=== PATIENT | female | born 1985 | race Caucasian/White ===

== ENCOUNTER 2019-08-13 17:22 | Emergency (ER) | payer MEDICAID ==
[2019-08-13] MEDS ORDERED: PROVENTIL 2.5 MG/3 ML NEB IH ONE ×2 (18:23→18:47)
[2019-08-13] MEDS ORDERED: solu-MEDROL 125 MG IV ONE (18:23)
[2019-08-13] MEDS ORDERED: Sodium Chloride 0.9% 1000 ML 1,000 ML IV STA (18:23)
[2019-08-13] MEDS ORDERED: Sodium Chloride 0.9% 1000 ML 1,000 ML ONE (18:44)
[2019-08-13] MEDS ORDERED: solu-MEDROL 125 MG ONE (18:44)
[2019-08-13 18:53] LABS: Absolute Neutrophil Ct (ANC) 4.28 (1.4-6.9); Hematocrit 31.5 % (35-47); Hemoglobin 10.1 gm/dl (12.0-16.0); Mean Corpuscular Hemoglobin 28.5 pg (26-32); Mean Corpuscular Hgb Concent. 32.1 g/dl (32-36); Mean Platelet Volume 11.3 fl (7.5-11.0); Platelet Count 277 K/mm3 (150-450); Red Blood Count 3.54 M/mm3 (4.1-5.4); Red Cell Distribution Width 13.3 % (11.5-14.0); White Blood Count 6.6 K/mm3 (4.0-10.5)
[2019-08-13 19:06] LABS: ALBUMIN 3.5 g/dL (3.5-5.0); ALKALINE PHOSPHATASE 84 U/L (38-126); ANION GAP 10.2 MEQ/L (5-15); BLOOD UREA NITROGEN 12 mg/dL (7-17); CHLORIDE 107 mmol/L (98-107); Calcium 8.3 mg/dL (8.4-10.2); Carbon Dioxide 25 mmol/L (22-30); Creatinine 1 0.67 mg/dL (0.52-1.04); Glucose 110 mg/dL (74-106); Potassium 3.5 mmol/L (3.5-5.1); SGOT/AST 32 U/L (14-36); SGPT/ALT 15 U/L (0-35); SODIUM 139 mmol/L (137-145); Total Protein 7.5 g/dL (6.3-8.2)
[2019-08-13 19:49] LABS: INFLUENZA A NEGATIVE (NEGATIVE); INFLUENZA B NEGATIVE (NEGATIVE); RESPIRATORY SYNCTIAL VIRUS NEGATIVE (Negative)
[2019-08-13] MEDS ORDERED: ROCEPHIN 1 Gm-D5w 50 ml Bag** 1 G/50 ML IVPB IV STA (20:06)
--- NOTE | 2019-08-13 20:08 | ERPHSYRPT ---
- History of Present Illness Time Seen by Provider: 08/13/19 18:30 Source: patient Exam Limitations: no limitations Patient Subjective Stated Complaint: PT states "I have been coughing for a few weeks now and I do not feel well." Triage Nursing Assessment: Pt presented congested with occasional cough. Pt ambulates with an upright steady gait, able to speak in clear full sentences pt in no apparent respiratory distress. Physician History: 33-year-old white female with cough x10 days she been coughing sneezing bringing up some mucousy sputum. She denies fever but says she has had some chills and sweats. Timing/Duration: day(s) (10) Cough Quality/Degree: productive cough, sputum Possible Cause: occasional episodes Modifying Factors: Improves With: activity Associated Symptoms: chills, nasal congestion, nasal drainage, shortness of breath, wheezing Allergies/Adverse Reactions: No Known Drug Allergies Allergy (Unverified 08/13/19 18:11) Hx Tetanus, Diphtheria Vaccination/Date Given: No Hx Influenza Vaccination/Date Given: No Hx Pneumococcal Vaccination/Date Given: No Immunizations Up to Date: Yes - Review of Systems Constitutional: Chills, No Fever Eyes: No Symptoms Ears, Nose, & Throat: No Symptoms Respiratory: Cough, No Dyspnea Cardiac: No Chest Pain, No Edema, No Syncope Abdominal/Gastrointestinal: No Abdominal Pain, No Nausea, No Vomiting, No Diarrhea Genitourinary Symptoms: No Dysuria Musculoskeletal: No Back Pain, No Neck Pain Skin: No Rash Neurological: No Dizziness, No Focal Weakness, No Sensory Changes Psychological: No Symptoms Endocrine: No Symptoms All Other Systems: Reviewed and Negative - Past Medical History Pertinent Past Medical History: No - Past Surgical History Past Surgical History: Yes Other Surgical History: c section - Social History Smoking Status: Never smoker Exposure to second hand smoke: Yes Drug Use: none Patient Lives Alone: No - Female History Hx Last Menstrual Period: 07/26/2019 Hx Now: No - Nursing Vital Signs Nursing Vital Signs: Initial Vital Signs Temperature 98.2 F 08/13/19 18:06 Pulse Rate 88 08/13/19 18:06 Respiratory Rate 18 08/13/19 18:06 Blood Pressure 143/76 08/13/19 18:06 O2 Sat by Pulse Oximetry 98 08/13/19 18:06 Pain Scale Pain Intensity 2 - Physical Exam General Appearance: no apparent distress, alert Eye Exam: PERRL/EOMI, eyes nml inspection Ears, Nose, Throat Exam: normal ENT inspection, TMs normal, pharynx normal, moist mucous membranes Neck Exam: normal inspection, non-tender, supple, full range of motion Respiratory Exam: crackles/rales, rhonchi, wheezing, No respiratory distress Cardiovascular Exam: regular rate/rhythm, normal heart sounds Gastrointestinal/Abdomen Exam: soft, No tenderness Back Exam: normal inspection, No CVA tenderness, No vertebral tenderness Extremity Exam: normal inspection, normal range of motion Neurologic Exam: alert, oriented x 3, cooperative, normal mood/affect, sensation nml, No motor deficits Skin Exam: normal color, warm, dry, No rash Lymphatic Exam: No adenopathy SpO2: 98 - Course Nursing assessment & vital signs reviewed: Yes - Radiology Exams Chest X-ray Interpretation: Interpreted by me (Appears to have a left lower lobe infiltrate) Ordered Tests: Active Orders 24 hr Category Date Time Status CHEST 1 VIEW (PORTABLE) Stat Exams 08/13/19 18:23 Taken BLOOD CULTURE Stat Lab 08/13/19 18:47 Received CBC W DIFF Stat Lab 08/13/19 18:47 Completed CMP Stat Lab 08/13/19 18:47 Completed Lactic Acid Stat Lab 08/13/19 18:23 Completed Manual Differential NC Stat Lab 08/13/19 18:47 Completed Peak Expiratory Flow Rate ONCE RT 08/13/19 18:58 Active Respiratory Therapy Assessment DAILY RT 08/13/19 18:58 Active Medication Summary Discontinued Medications Generic Name Dose Route Start Last Admin Trade Name Freq PRN Reason Stop Dose Admin Albuterol Sulfate 2.5 mg 08/13/19 18:23 08/13/19 18:59 Proventil 2.5 Mg/3 Ml Neb IH 08/13/19 18:24 2.5 mg STAT ONE Administration Albuterol Sulfate Confirm 08/13/19 18:47 Proventil 2.5 Mg/3 Ml Neb Administered 08/13/19 18:48 Dose 2.5 mg IH .STK-MED ONE Sodium Chloride 1,000 mls @ 999 mls/hr 08/13/19 18:23 08/13/19 18:47 Sodium Chloride 0.9% 1000 Ml IV 08/13/19 19:23 999 mls/hr .Q1H1M STA Administration Sodium Chloride Confirm 08/13/19 18:44 Sodium Chloride 0.9% 1000 Ml Administered 08/13/19 18:45 Dose 1,000 mls @ ud .ROUTE .STK-MED ONE Methylprednisolone Sodium Succinate 80 mg 08/13/19 18:23 08/13/19 18:47 Solu-Medrol 125 Mg IV 08/13/19 18:24 80 mg STAT ONE Administration Methylprednisolone Sodium Succinate Confirm 08/13/19 18:44 Solu-Medrol 125 Mg Administered 08/13/19 18:45 Dose 125 mg .ROUTE .STK-MED ONE Lab/Rad Data: Laboratory Result Diagrams 08/13/19 18:47 08/13/19 18:47 Laboratory Results 08/13/19 08/13/19 08/13/19 Range/Units 18:47 18:47 18:47 WBC 6.6 (4.0-10.5) K/mm3 RBC 3.54 L (4.1-5.4) M/mm3 Hgb 10.1 L (12.0-16.0) gm/dl Hct 31.5 L (35-47) % MCV 89.0 (78-100) fl MCH 28.5 (26-32) pg MCHC 32.1 (32-36) g/dl RDW 13.3 (11.5-14.0) % Plt Count 277 (150-450) K/mm3 MPV 11.3 H (7.5-11.0) fl Absolute Granulocytes 4.28 (1.4-6.9) Sodium 139 (137-145) mmol/L Potassium 3.5 (3.5-5.1) mmol/L Chloride 107 (98-107) mmol/L Carbon Dioxide 25 (22-30) mmol/L Anion Gap 10.2 (5-15) MEQ/L BUN 12 (7-17) mg/dL Creatinine 0.67 (0.52-1.04) mg/dL Estimated GFR > 60.0 ML/MIN Glucose 110 H (74-106) mg/dL Lactic Acid (0.4-2.0) Calcium 8.3 L (8.4-10.2) mg/dL Total Bilirubin 0.50 (0.2-1.3) mg/dL AST 32 (14-36) U/L ALT 15 (0-35) U/L Alkaline Phosphatase 84 (38-126) U/L Serum Total Protein 7.5 (6.3-8.2) g/dL Albumin 3.5 (3.5-5.0) g/dL Influenza Type A Ag NEGATIVE (NEGATIVE) Influenza Type B Ag NEGATIVE (NEGATIVE) RSV (PCR) NEGATIVE (Negative) 08/13/19 Range/Units 18:23 WBC (4.0-10.5) K/mm3 RBC (4.1-5.4) M/mm3 Hgb (12.0-16.0) gm/dl Hct (35-47) % MCV (78-100) fl MCH (26-32) pg MCHC (32-36) g/dl RDW (11.5-14.0) % Plt Count (150-450) K/mm3 MPV (7.5-11.0) fl Absolute Granulocytes (1.4-6.9) Sodium (137-145) mmol/L Potassium (3.5-5.1) mmol/L Chloride (98-107) mmol/L Carbon Dioxide (22-30) mmol/L Anion Gap (5-15) MEQ/L BUN (7-17) mg/dL Creatinine (0.52-1.04) mg/dL Estimated GFR ML/MIN Glucose (74-106) mg/dL Lactic Acid 1.0 (0.4-2.0) Calcium (8.4-10.2) mg/dL Total Bilirubin (0.2-1.3) mg/dL AST (14-36) U/L ALT (0-35) U/L Alkaline Phosphatase (38-126) U/L Serum Total Protein (6.3-8.2) g/dL Albumin (3.5-5.0) g/dL Influenza Type A Ag (NEGATIVE) Influenza Type B Ag (NEGATIVE) RSV (PCR) (Negative) - Progress Air Movement: good Blood Culture(s) Obtained: No Antibiotics given: Yes - Departure Departure Disposition: Home Clinical Impression: Left lower lobe pneumonia Condition: Stable Critical Care Time: No Referrals: DOCTOR,NO FAMILY [Primary Care Provider] - Instructions: Pneumonia, Adult (DC) Prescriptions: Cephalexin Mh 500 mg [Keflex 500 mg] 500 mg PO TID #21 capsule
[2019-08-13] MEDS ORDERED: ROCEPHIN 1 Gm-D5w 50 ml Bag** 1 G/50 ML IVPB IV ONE (20:10)
[2019-08-13 21:10] VITALS: BP 114/72; PULSE 80; O2SAT 97
[2019-08-13 23:48] LABS: BAND 3 % (0.0-2.0); Eosinophil 2 % (0.00-3.0); Lymphocytes 28 % (24-44); Metamyelocyte 2 %; Monocyte 2 % (0.0-12.0); Neutrophils 63 % (36.0-66.0); Total Cells Counted 100
[2019-08-13 23:49] LABS: Platelet Estimate NORMAL (NORMAL)
[2019-08-13 23:50] LABS: ANISOCYTOSIS 2+; Hypochromia 2+; Poikilocytosis 2+
--- NOTE | 2019-08-14 09:05 | XRAY ---
Indication: Short of breath, cough, and wheezing. Comparison: None Portable apical lordotic chest demonstrates lingula air space opacity and incidental tiny right mid lung calcified granuloma. Remaining heart, lungs, and bony thorax normal.
== END 2019-08-13 21:10 | disposition home or self-care (01) ==
LOC: ED 17:22
DX: J18.1 Lobar pneumonia, unspecified organism (principal)
CPT/HCPCS: 36000; 36415; 71045; 80053; 83605; 85025; 87040; 87631; 94150; 94640; 96374; 99284; J0696; J2930; J7609; A9270-GY

== ENCOUNTER 2024-08-10 11:02 | Emergency (ER) | payer OTHER ==
--- NOTE | 2024-08-10 11:22 | ERPHSYRPT ---
- History of Present Illness Time Seen by Provider: 08/10/24 11:22 Source: patient Exam Limitations: no limitations Physician History: This is a 38-year-old white female patient who presents to the emergency department by private vehicle with a complaint of left upper and left lower molar pain. Patient states the pain came on approximately 1 week ago. She states she does not have dental insurance. She has not had a fever. She has no difficulty swallowing. She has no difficulty breathing. She is not on any medications and she has no known drug allergies. Timing/Duration: gradual onset Severity: mild ENT Location: dental (Left upper and left lower molar pain) Modifying Factors: Improves With: other (Chewing worsens pain) Associated Symptoms: tooth pain (Left upper and lower molars), No facial pain/swelling, No sore throat, No difficulty swallowing, No voice change Allergies/Adverse Reactions: No Known Drug Allergies Allergy (Verified 08/10/24 11:24) Hx Tetanus, Diphtheria Vaccination/Date Given: No Hx Influenza Vaccination/Date Given: No Hx Pneumococcal Vaccination/Date Given: No Travel Risk - International Travel Have you traveled outside of the country in past 3 weeks: No - Emerging Infectious Disease Are you exhibiting symptoms associated with any current EIDs: No - Review of Systems Constitutional: No Symptoms Eyes: No Symptoms Ears, Nose, & Throat: Other (Upper and lower dental pain) Respiratory: No Symptoms Cardiac: No Symptoms Abdominal/Gastrointestinal: No Symptoms Genitourinary Symptoms: No Symptoms Musculoskeletal: No Symptoms Skin: No Symptoms Neurological: No Symptoms Psychological: No Symptoms Endocrine: No Symptoms Hematologic/Lymphatic: No Symptoms Immunological/Allergic: No Symptoms All Other Systems: Reviewed and Negative - Past Medical History Pertinent Past Medical History: No - Past Surgical History Past Surgical History: Yes Other Surgical History: c section - Social History Smoking Status: Never smoker Exposure to second hand smoke: Yes Drug Use: none Patient Lives Alone: No - Nursing Vital Signs Nursing Vital Signs: Initial Vital Signs Temperature 97.4 F 08/10/24 11:16 Pulse Rate 65 08/10/24 11:16 Respiratory Rate 20 08/10/24 11:16 Blood Pressure 133/96 08/10/24 11:16 O2 Sat by Pulse Oximetry 98 08/10/24 11:16 Pain Scale Pain Intensity 4 - Physical Exam General Appearance: no apparent distress, alert, anxiety Eye Exam: bilateral eye: normal inspection, PERRL, EOMI Ear Exam: bilateral ear: auricle normal Nasal Exam: normal inspection Throat Exam: pharynx normal, dental tenderness (Left upper and lower molars), moist mucus membranes, No tongue swollen, No uvula swelling, No voice changes Neck Exam: normal inspection, non-tender, supple, full range of motion Cardiovascular/Respiratory Exam: chest non-tender, no respiratory distress Abdominal Exam: non-tender Neurologic Exam: alert, oriented x 3, cooperative, eligibility worker II-XII nml as tested, nml cerebellar function, nml station & gait, sensation nml Skin Exam: normal color, warm, dry SpO2 Interpretation: normal O2 Delivery: Room Air - Course Nursing assessment & vital signs reviewed: Yes Ordered Tests: Medication Summary Discontinued Medications Generic Name Dose Route Start Last Admin Trade Name Freq PRN Reason Stop Dose Admin Amoxicillin 500 mg 08/10/24 12:03 Amoxicillin Trihydrate 500 Mg Capsule PO 08/10/24 12:04 STAT ONE - Progress Progress: unchanged Progress Note: 08/10/24 12:07 My medical decision making of the assignment of low complexity to this patient's medical issue today is based on review of the patient's past medical history, review the patient's medication list, review patient drug allergy list, history present illness and physical findings on examination. The workup in this patient does not require any laboratory radiographic studies. We will provide the patient with amoxicillin 500 mg orally 1 capsule now. Differential diagnosis includes but is not limited to dental infection, dental pain, gingivitis Counseled pt/family regarding: diagnosis, need for follow-up Medical Desision Making - Diagnostic Testing Diagnostic test were ordered, analyzed, and reviewed by me: No - Risk of complications The pt has a mod risk of morbidity or mortality based on: Need for prescription drug management - Departure Departure Disposition: Home Clinical Impression: Chronic dental pain, Dental caries Condition: Stable Critical Care Time: No Referrals: CHELSEY HEARD MD [Primary Care Provider] - Follow up/PCP as directed Additional Instructions: Use Tylenol and ibuprofen for pain control. Call dentist today, 08/10/2024, to make arrangements for follow-up appointment for further evaluation and management and for definitive care. Take your antibiotics as prescribed. Prescriptions: Amoxicillin 500 mg Cap [Amoxil 500 mg] 500 mg PO TID #30 cap
[2024-08-10 11:24] VITALS: TEMP 97.4
[2024-08-10] MEDS ORDERED: AMOXIL 500 MG ONE (12:11)
[2024-08-10] MEDS: AMOXIL 500 MG PO ONE (12:17)
[2024-08-10 12:39] VITALS: BP 109/78; PULSE 78; RESP 18; O2SAT 97
== END 2024-08-10 12:40 | disposition home or self-care (01) ==
LOC: ED 11:02
DX: G89.29 Other chronic pain (principal); K08.89 Other specified disorders of teeth and supporting structures; K02.9 Dental caries, unspecified; Z79.899 Other long term (current) drug therapy
CPT/HCPCS: 99281; 99283; A9270-GY

== ENCOUNTER 2025-02-28 14:54 | Emergency (ER) | payer OTHER ==
--- NOTE | 2025-02-28 14:59 | ERPHSYRPT ---
- History of Present Illness Time Seen by Provider: 02/28/25 14:59 Source: patient, family Exam Limitations: no limitations Physician History: This is a 39-year-old white female patient arrives by private vehicle accompanied by family and is a patient of Dr. Heard with the complaint of 2 weeks of left lower extremity achiness. Patient was given prescriptions for pain medicine and muscle relaxant without benefit. Patient denies injury to this area. She has no family history of clotting disorder. Patient states the achiness is in the entire left lower extremity. The maximal pain is at or about the knee on the left side. She does not have chest pain. She does not have shortness of breath. She denies cough of any kind. Method of Injury: other (No known injury) Occurred: other (Symptoms for 2 weeks) Quality: intermittent, aching Severity of Pain-Max: mild Severity of Pain-Current: mild Lower Extremities Pain: leg: left, knee: left, thigh: left, foot: left, ankle: left Modifying Factors: Improves With: movement Associated Symptoms: none Allergies/Adverse Reactions: No Known Drug Allergies Allergy (Verified 08/10/24 11:24) Home Medications: No Reportable Medications [No Reported Medications] 02/28/25 [History] Hx Tetanus, Diphtheria Vaccination/Date Given: No Hx Influenza Vaccination/Date Given: No Hx Pneumococcal Vaccination/Date Given: No Travel Risk - International Travel Have you traveled outside of the country in past 3 weeks: No - Emerging Infectious Disease Are you exhibiting symptoms associated with any current EIDs: No - Review of Systems Constitutional: No Symptoms Eyes: No Symptoms Ears, Nose, & Throat: No Symptoms Respiratory: No Symptoms Cardiac: No Symptoms Abdominal/Gastrointestinal: No Symptoms Genitourinary Symptoms: No Symptoms Musculoskeletal: Other (Achiness in left lower leg from the left hip distally point of maximal pain about the knee) Skin: No Symptoms Neurological: No Symptoms Psychological: No Symptoms Endocrine: No Symptoms Hematologic/Lymphatic: No Symptoms Immunological/Allergic: No Symptoms All Other Systems: Reviewed and Negative - Past Medical History Pertinent Past Medical History: No - Past Surgical History Past Surgical History: Yes Other Surgical History: c section - Female History Hx Last Menstrual Period: 07/26/24 - Social History Smoking Status: Never smoker Exposure to second hand smoke: Yes Drug Use: none Patient Lives Alone: No - Social Determinants of Health Will the patient participate in the screening: Declined to provide - Nursing Vital Signs Nursing Vital Signs: Initial Vital Signs Temperature 96.9 F 02/28/25 14:55 Pulse Rate 73 02/28/25 14:55 Respiratory Rate 16 02/28/25 14:55 Blood Pressure 188/88 02/28/25 14:55 O2 Sat by Pulse Oximetry 98 02/28/25 14:55 Pain Scale Pain Intensity 10 - Physical Exam General Appearance: no apparent distress, alert Eyes, Ears, Nose, Throat Exam: normal ENT inspection, moist mucous membranes Neck Exam: normal inspection, non-tender, supple, full range of motion Cardiovascular/Respiratory Exam: chest non-tender, no respiratory distress Gastrointestinal/Abdominal Exam: non-tender Back Exam: normal inspection, normal range of motion, No CVA tenderness, No vertebral tenderness Hips Exam: bilateral: non-tender, normal inspection, normal range of motion, no evidence of injury Legs Exam: right leg: non-tender, left leg: soft tissue tenderness, bilateral leg: normal inspection, normal range of motion, no evidence of injury Knees Exam: right knee: non-tender, left knee: soft tissue tenderness, bilateral knee: normal inspection, normal range of motion, no evidence of injury Ankle Exam: right ankle: non-tender, left ankle: soft tissue tenderness, bilateral ankle: normal inspection, normal range of motion, no evidence of injury Foot Exam: right foot: non-tender, left foot: soft tissue tenderness, bilateral foot: normal inspection, normal range of motion, no evidence of injury Neuro/Tendon Exam: normal sensation, normal motor functions, normal tendon functions, no evidence tendon injury Mental Status Exam: alert, oriented x 3, cooperative Skin Exam: normal color, warm, dry SpO2 Interpretation: normal O2 Delivery: Room Air - Course Nursing assessment & vital signs reviewed: Yes Ordered Tests: Active Orders 24 hr Category Date Time Status KNEE (3 VIEWS) Stat Exams 02/28/25 15:16 Completed BMP Stat Lab 02/28/25 15:33 Completed D-DIMER QUANTITATIVE Stat Lab 02/28/25 15:33 Completed MAGNESIUM Stat Lab 02/28/25 15:33 Completed Lab/Rad Data: Laboratory Result Diagrams 02/28/25 15:33 Laboratory Results 02/28/25 02/28/25 Range/Units 15:33 15:33 D-Dimer 0.36 (0.0-0.50) mg/L Sodium 136 (135-145) mmol/L Potassium 3.7 (3.5-5.1) mmol/L Chloride 107 (98-107) mmol/L Carbon Dioxide 25 (22-30) mmol/L Anion Gap 8.0 (5-15) MEQ/L BUN 15 (7-17) mg/dL Creatinine 0.66 (0.52-1.04) mg/dL Estimated GFR 115.1 ML/MIN Glucose 103 (74-106) mg/dL Calcium 8.7 (8.4-10.2) mg/dL Magnesium 2.1 (1.6-2.3) mg/dL - Progress Progress: unchanged Progress Note: 02/28/25 15:34 My medical decision making and the assignment of moderate complexity of this patient's medical issue today is based on review of the patient's past medical history, review the patient's medication list, reviewed patient drug allergy list, history present illness and physical findings on examination. The workup in this patient includes BMP, magnesium level, D-dimer level, x-ray of the left knee. Differential diagnosis includes was not limited to left knee sprain, left knee dislocation, left knee fracture, DVT, electrolyte abnormalities 02/28/25 15:37 I interpreted the preliminary x-ray report of the left knee. I see no acute fracture or dislocation. The radiologist interpreted the final report of the left knee x-ray. There is a tiny suprapatellar spurring and tiny fabella. No other bony, articular or soft tissue abnormalities present 02/28/25 16:00 I interpreted the patient's laboratory data results. Based on the laboratory data results, there are no acute, emergent medical issues. Counseled pt/family regarding: lab results, diagnosis, need for follow-up, rad results Medical Desision Making - Independent Historian Additional History obtained from: Family - Diagnostic Testing Diagnostic test were ordered, analyzed, and reviewed by me: Yes Radiological Interpretation: Interpreted by me, Reviewed by me, Teleradiologist Report - Risk of complications Low Risk: Low risk of morbidity from additional dx testing or treatment - Departure Departure Disposition: Home Clinical Impression: Left leg pain Condition: Stable Critical Care Time: No Referrals: CHELSEY HEARD MD [Primary Care Provider, [facility]] - Follow up/PCP as directed Additional Instructions: Continue Tylenol and ibuprofen. Call your primary care provider tomorrow, 03/01/2025, to make arrangements for follow-up appointment for further evaluation management. Your other option is to follow-up at the [facility] orthopedic clinic Tuesday through Tuesday 8 AM to 10 AM. You do not need an appointment. Those are those are the walk-in visit times
[2025-02-28 15:13] VITALS: RESP 16; TEMP 96.9; O2SAT 98
--- NOTE | 2025-02-28 15:34 | XRAY ---
Indication: Pain. Comparison: None 3 view left knee demonstrates tiny suprapatella spurring and tiny fabella. No other bony, articular, or soft tissue abnormalities.
[2025-02-28 15:49] LABS: Calcium 8.7 mg/dL (8.4-10.2); Carbon Dioxide 25.0 mmol/L (22-30); Creatinine 1 0.66 mg/dL (0.52-1.04); EST GLOMERULAR FILTRATION RATE 115.1 ML/MIN; Glucose 103.0 mg/dL (74-106); Potassium 3.7 mmol/L (3.5-5.1)
[2025-02-28 16:23] VITALS: BP 102/76; PULSE 74
== END 2025-02-28 16:24 | disposition home or self-care (01) ==
LOC: ED 14:54
DX: M79.605 Pain in left leg (principal)